=== PATIENT | female | born 1945 | race Caucasian/White ===

== ENCOUNTER 2017-05-21 16:19 | Outpatient (CLI) | payer MEDICARE, OTHER ==
[2016-08-03 02:10] VITALS: BP 174/62
[2017-05-21 16:57] LABS: EOSINOPHILS % 1.9 % (0.0-6.8); MEAN CORPUSCULAR HEMOGLOBIN 32.4 pg (28.0-34.0); MEAN CORPUSCULAR VOLUME 89.7 fl (80.0-100.0); MONOCYTES % 4.1 % (0.0-11.0); NEUTROPHILS # 4.2 # k/uL (1.4-7.7)
[2017-05-21 17:07] LABS: eGFR (African) > 60; eGFR (Non-African) > 60
== END 2017-05-21 16:20 ==
LOC: LAB 16:19
PROVIDERS: ATTEND Family Medicine
DX: I10 Essential (primary) hypertension (principal)
CPT/HCPCS: 36415; 80053; 85025

== ENCOUNTER 2017-07-26 21:36 | Emergency (ER) | payer MEDICARE, OTHER ==
--- NOTE | 2017-07-26 21:58 | ED Physician Documentation ---
General Adult - HPI Stated Complaint: Right arm pain Chief Complaint: General Adult Additional Information: In bed, began to roll to her left, and had aching pain in her right shoulder to he4r hand that lasted 2 minutes. Became sweaty and auseous while pain was present cause it hurt so much. Never had this particular pain before. All symptoms resolved in ER. - ROS CONST: no problems - PAST HX Past History: COPD Allergies/Adverse Reactions: Allergies Allergy/AdvReac Type Severity Reaction Status Date / Time Sulfa (Sulfonamide Allergy Verified 08/03/16 01:17 Antibiotics) [Sulfa(Sulfonamide Antibiotics)] Home Medications: Ambulatory Orders Medication Instructions Recorded predniSONE [Deltasone] 20 mg PO QD #2 tablet 08/03/16 - SOCIAL HX Smoking History: cigarettes - FAMILY HX Family History: No - VITAL SIGNS Vital Signs: Vital Signs Temp Pulse Resp BP Pulse Ox 98.4 F 70 18 181/62 93 07/26/17 21:50 07/26/17 21:50 07/26/17 21:50 07/26/17 21:50 07/26/17 21:50 - REVIEWED ASSESSMENTS Nursing Assessment Reviewed: Yes Vitals Reviewed: Yes Progress - Progress Progress: 3 views of the right shoulder Clinical history: Right shoulder pain Findings: No acute fracture dislocation is identified. Alignment is normal. Soft tissues are unremarkable. No calcifications identified. Impression: Negative Electronically signed on Jul 26, 2017 10:36:37 PM CDT by: Gera Mackey ED Results Lab/Radiology - Orders Orders: ED Orders Category Date Time Status SHOULDER 2 VIEWS OR MORE [RAD] Stat Exams 07/26/17 Ordered General Adult Physical Exam - PHYSICAL EXAM GENERAL APPEARANCE: no distress EENT: eye inspection normal, ENT inspection normal NECK: normal inspection, supple RESPIRATORY: breath sounds normal, rales, other (occasional cough) CVS: reg rate & rhythm, heart sounds normal, no murmur ABDOMEN: soft, normal bowel sounds BACK: normal inspection SKIN: warm/dry, normal color EXTREMITIES: non-tender, normal range of motion, no evidence of injury, other ( right radialpulse 2+) NEURO: CN's nml as tested, motor nml, sensation nml Discharge Clincal Impression: Shoulder pain Referrals: John Mixon MD [Primary Care Provider] - 2 Days Additional Instructions: You may have had a muscle spasm in your neck or shoulder. You can apply gentle heat to the area if it happens again. Condition: Good Disposition: 01 HOME, SELF-CARE Decision to Admit: NO Decision Time: 22:40
[2017-07-26 22:51] VITALS: BP 149/42
--- NOTE | 2017-07-27 06:50 | Diagnostic Imaging Report ---
NELLY ESTEVEZ [facility] [address] [facility] [address] [address] Report Submission Date: Jul 26, 2017 10:36:37 PM CDT Patient Study Name: OMERO MAC Date: Jul 26, 2017 9:55:14 PM CDT Modality Type: CR Gender: F Description: SHOULDER : 49 Institution: [facility] Physician: NELLY ESTEVEZ - PENNIE 3 views of the right shoulder Clinical history: Right shoulder pain Findings: No acute fracture dislocation is identified. Alignment is normal. Soft tissues are unremarkable. No calcifications identified. Impression: Negative Electronically signed on Jul 26, 2017 10:36:37 PM CDT by: Gera SMYTH
== END 2017-07-26 22:49 | disposition home or self-care (01) ==
LOC: ED 21:36
DX: M25.511 Pain in right shoulder (principal)
CPT/HCPCS: 73030; 99283

== ENCOUNTER 2017-07-28 17:21 | Outpatient (CLI) | payer MEDICARE, OTHER ==
--- NOTE | 2017-07-28 18:50 | Diagnostic Imaging Report ---
ALFIE PFEIFFER [facility] [address] [facility] [address] [place], [place]. [address] Report Submission Date: Jul 28, 2017 5:46:00 PM CDT Patient Study Name: OMERO MAC Date: Jul 28, 2017 5:21:59 PM CDT Modality Type: CR Gender: F Description: CHEST : 49 Institution: [facility] Physician: ALFIE PFEIFFER Examination: PA and lateral chest. History: Evaluate lung phipps. Comparison exam: None available Findings: PA lateral chest demonstrate a normal cardiac and mediastinal silhouette. Mild chronic/emphysematous parenchymal changes. No focal infiltrate. No effusion. No blunting of the costophrenic margins. Granuloma right lower lung. Flattening of the diaphragm on lateral view. Osseous structures are appropriate for age. Impression: Mild emphysematous parenchymal changes. No acute pulmonary process. Electronically signed on Jul 28, 2017 5:46:00 PM CDT by: Richardson SMYTH
== END 2017-07-28 17:22 ==
LOC: RAD 17:21
PROVIDERS: ATTEND Family Medicine
DX: J20.9 Acute bronchitis, unspecified (principal)
CPT/HCPCS: 71020

== ENCOUNTER 2017-09-06 15:17 | Outpatient (CLI) | payer MEDICARE, OTHER ==
--- NOTE | 2017-09-06 16:04 | Diagnostic Imaging Report ---
ALFIE PFEIFFER [facility] [address] [facility] [address] Report Submission Date: Sep 06, 2017 3:44:59 PM CDT Patient Study Name: OMERO MAC Date: Sep 06, 2017 3:30:08 PM CDT Modality Type: CR Gender: F Description: UPPER EXTREMITY : 49 Institution: [facility] Physician: ALFIE PFEIFFER Examination: Plain film humerus History: Discomfort Comparison exams: None provided Findings: 3 views of the humerus demonstrate normal cortical margins. No fracture. No dislocation. No joint effusion Impression: No acute osseous abnormality. Electronically signed on Sep 06, 2017 3:44:59 PM CDT by: Richardson SMYTH
--- NOTE | 2017-09-06 16:04 | Diagnostic Imaging Report ---
ALFIE PFEIFFER [facility] [place] [facility] [address] [facility].[address] [address] Report Submission Date: Sep 06, 2017 3:44:09 PM CDT Patient Study Name: OMERO MAC Date: Sep 06, 2017 3:24:56 PM CDT Modality Type: CR Gender: F Description: SHOULDER : 49 Institution: [facility] [place] [facility] Physician: ALFIE PFEIFFER Examination: Plain film shoulder History: Discomfort Comparison exams: None provided Findings: 2 views of the shoulder demonstrate normal cortical margins. No evidence for fracture or dislocation. No soft tissue abnormality Impression: No acute osseous process. Electronically signed on Sep 06, 2017 3:44:09 PM CDT by: Richardson SMYTH
== END 2017-09-06 15:19 ==
LOC: RAD 15:17
PROVIDERS: ATTEND Family Medicine
DX: M25.512 Pain in left shoulder (principal)
CPT/HCPCS: 73030; 73060

== ENCOUNTER 2017-10-18 14:11 | Outpatient (CLI) | payer MEDICARE, OTHER ==
--- NOTE | 2017-10-18 15:39 | Diagnostic Imaging Report ---
ALFIE PFEIFFER [facility] [address] [facility] [address] 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 No fracture. No dislocation. No joint effusion. No soft tissue irregularity. Impression: No acute osseous abnormality. Electronically signed on Oct 18, 2017 2:50:13 PM MATH AND SCIENCES DEPARTMENT CHAIR by: Richardson SMYTH
== END 2017-10-18 14:15 ==
LOC: RAD 14:11
PROVIDERS: ATTEND Family Medicine
DX: M25.561 Pain in right knee (principal)
CPT/HCPCS: 73562

== ENCOUNTER 2018-02-23 16:39 | Outpatient (CLI) | payer MEDICARE, OTHER ==
--- NOTE | 2018-02-23 18:43 | Diagnostic Imaging Report ---
ALFIE PFEIFFER [facility] [address] [facility] [address] [address] Report Submission Date: Feb 23, 2018 5:24:36 PM CDT Patient Study Name: OMERO MAC Date: Feb 23, 2018 4:47:53 PM CDT Modality Type: DX Gender: F Description: LOWER EXTREMITY : 49 Institution: [facility] Physician: ALFIE PFEIFFER Examination: Plain film knees History: BILAT AP KNEES STANDING, RT KNEE PAIN WORSENING X1 YEAR, NO KNOWN INJURY (Hx) Findings: Single AP standing view of the knees. Minimal tibial spine spurring. Mild medial joint space narrowing. No evidence for fracture. Impression: Mild degenerative changes. No fracture. Electronically signed on Feb 23, 2018 5:24:36 PM CDT by: Richardson SMYTH
--- NOTE | 2018-02-23 18:44 | Diagnostic Imaging Report ---
ALFIE PFEIFFER [facility] [address] [facility] [address] [address] Report Submission Date: Feb 23, 2018 5:28:40 PM CDT Patient Study Name: OMERO MCA Date: Feb 23, 2018 4:51:50 PM CDT Modality Type: DX Gender: F Description: LOWER EXTREMITY : 49 Institution: [facility] Physician: ALFIE PFEIFFER Examination: Plain film right knee History: RT KNEE, PAIN IN RT KNEE WORSENING X1 YEAR, NO KNOWN INJURY (Hx) / ITS.REASON right knee pain (DICOM Hx) Comparison exam: 18 October 2017 Findings: 3 views of the right knee demonstrates minimal tibial spine spurring. Mild medial joint space narrowing. No fracture. No dislocation. No joint effusion. No soft tissue irregularity. Impression: Mild degenerative changes. No acute appearing osseous abnormality Electronically signed on Feb 23, 2018 5:28:40 PM CDT by: Richardson SMYTH
--- NOTE | 2018-02-23 18:44 | Diagnostic Imaging Report ---
ALFIE PFEIFFER [facility] [address] [facility] [address] [place] [address]. [address] Report Submission Date: Feb 23, 2018 5:30:46 PM CDT Patient Study Name: OMERO MAC Date: Feb 23, 2018 4:53:25 PM CDT Modality Type: DX Gender: F Description: PELVIS : 49 Institution: [facility] Physician: ALFIE PFEIFFER Examination: Plain film pelvis/hips History: BILAT HIPS WITH PELVIS, RT HIP PAIN WORSENING X1 YEAR, NO KNOWN INJURY (Hx) Comparison exams: None provided Findings: 5 views of the pelvis and hips bilaterally demonstrate normal cortical margins. Minimal superior acetabular spurring. No fracture. No dislocation. No soft tissue abnormality. Lumbar and pubic symphysis degenerative changes. Impression: Degenerative changes. No acute appearing osseous abnormality. Electronically signed on Feb 23, 2018 5:30:46 PM CDT by: Richardson SMYTH
== END 2018-02-23 16:40 ==
LOC: RAD 16:39
PROVIDERS: ATTEND Family Medicine
DX: M25.561 Pain in right knee (principal); M25.551 Pain in right hip
CPT/HCPCS: 73521; 73562; 73565

== ENCOUNTER 2018-07-01 13:58 | Outpatient (CLI) | payer OTHER, MEDICARE | END 2018-07-01 14:27 | LOC: LAB 13:58 | PROVIDERS: ATTEND Family Medicine | DX: R30.0 Dysuria (principal) | CPT/HCPCS: 87086; 87186 ==

== ENCOUNTER 2018-11-17 10:08 | Outpatient (CLI) | payer MEDICARE, OTHER | END 2018-11-17 10:12 | LOC: LABRHC 10:08 | PROVIDERS: ATTEND Family Medicine | DX: N39.0 Urinary tract infection, site not specified (principal); B96.20 Unspecified Escherichia coli [E. coli] as the cause of diseases classified elsewhere; Z16.24 Resistance to multiple antibiotics | CPT/HCPCS: 87086; 87186 ==

== ENCOUNTER 2019-01-06 11:53 | Outpatient (CLI) | payer MEDICARE, OTHER ==
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
== END 2019-01-06 12:10 ==
LOC: RAD 11:53
PROVIDERS: ATTEND Family Medicine
DX: S22.060D Wedge compression fracture of T7-T8 vertebra, subsequent encounter for fracture with routine healing (principal)
CPT/HCPCS: 72072

== ENCOUNTER 2019-06-29 18:49 | Emergency (ER) | payer MEDICARE, OTHER ==
--- NOTE | 2019-06-29 19:37 | ED Physician Documentation ---
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 Pt was planning to have R hip surgery on Jun 12, but pre-op EKG was abnormal, and pcp wanted pt to have cardiac cath prior to hip surgery. Pt was lifting a lamp about 4 days ago and developed pain in her L shoulder when she lifted it overhead. She saw a chiropractor about her shoulder. In the last few days, shoulder pain has worsened until today, she developed intense shoulder pain with diaphoresis and vomiting. Pt denies chest pain per se. She has some sob, but this is chronic, as pt has COPD. She is a 1 ppd smoker.) - ROS CONST: no problems EYES/ENT: none CVS/RESP: shortness of breath (chronic) GI/: vomiting, nausea MS/SKIN/LYMPH: none - PAST HX Past History: COPD, other (R hip pain (planning surgery), anxiety, depression, HTN) - VITAL SIGNS Vital Signs: Vital Signs Temp Pulse Resp BP Pulse Ox 98.1 F 60 14 178/63 95 06/29/19 18:53 06/29/19 18:53 06/29/19 18:53 06/29/19 18:53 06/29/19 18:53 <Tenzin Lauren - Last Filed: 06/29/19 20:04> - SOCIAL HX Smoking History: non-smoker - FAMILY HX Family History: No - VITAL SIGNS Vital Signs: Vital Signs Temp Pulse Resp BP Pulse Ox 98.1 F 57 L 14 178/63 94 06/29/19 18:53 06/29/19 20:16 06/29/19 18:53 06/29/19 18:53 06/29/19 20:16 - REVIEWED ASSESSMENTS Nursing Assessment Reviewed: Yes Vitals Reviewed: Yes <NOELLE RAMAN - Last Filed: 06/29/19 21:21> - PAST HX Allergies/Adverse Reactions: Allergies Allergy/AdvReac Type Severity Reaction Status Date / Time Sulfa (Sulfonamide Allergy Verified 06/29/19 19:29 Antibiotics) [Sulfa(Sulfonamide Antibiotics)] Home Medications: Ambulatory Orders Medication Instructions Recorded Aspirin [Matt] 81 mg PO DAILY 07/26/17 Ketorolac Tromethamine [Toradol] 10 mg PO TID #9 tablet 06/29/19 Progress - Progress Progress: Care signed out to Noelle Tong at 1999. - EKG/XRAY/CT EKG: rhythm (Sinus bradycardia, HR=54; RSR V1, V2; LVH; EKG little changed from previous of 07-26-17.) <Tenzin Lauren - Last Filed: 06/29/19 20:04> - Progress Progress: Assumed care of patient - labs and EKG reviewed. Compared with EKG 07/26/2017 - no changes. Patient is schedule for cath with Dr Mckeon next week. ROM intact in left shoulder, no grimacing with ROM, tenderness over humeral head area. Will give 1 time dose of toradol. Patient states her PCP has instructed her not to use tylenol or ibuprofen related to her kidney function. Cr 1.16, GFR >60. Will dc with short course of NSAID and instructed patient to increase water intake while on NSAID. Patient will not move left arm. Requesting sling. Will apply in ER. Instructed patient to use as needed for pain x 2 days only. Encouraged active ROM. <NOELLE RAMAN - Last Filed: 06/29/19 21:21> ED Results Lab/Radiology - Lab Results Lab Results: Lab Results 06/29/19 06/29/19 06/29/19 19:46 19:46 19:19 WBC 6.50 K/ul K/ul (4.00-12.00) RBC 4.85 M/ul M/ul (3.90-5.20) Hgb 15.5 g/dL g/dL (11.5-16.0) Hct 45.4 % % (34.5-46.5) MCV 94.0 fl fl (80.0-100.0) MCH 32.0 pg pg (28.0-34.0) MCHC 34.1 g/dL g/dL (30.0-36.0) RDW 12.6 % % (11.3-14.3) Plt Count 119 K/mm3 L K/mm3 (130-400) Neut % (Auto) 66.0 % % (39.0-79.0) Lymph % (Auto) 27.2 % % (16.0-50.0) [place] % (Auto) 4.5 % % (0.0-11.0) Eos % (Auto) 1.8 % % (0.0-6.8) Baso % (Auto) 0.5 % % (0.0-1.5) Neut # (Auto) 4.3 # k/uL # k/uL (1.4-7.7) Lymph # (Auto) 1.8 # k/uL # k/uL (0.6-4.0) [place] # (Auto) 0.3 # k/uL # k/uL (0.0-0.9) Eos # (Auto) 0.1 # k/uL # k/uL (0.0-0.6) Baso # (Auto) 0.0 # k/uL # k/uL (0.0-0.5) Sodium 141 mmol/L mmol/L (137-145) Potassium 3.6 mmol/L mmol/L (3.5-5.1) Chloride 100 mmol/L mmol/L (98-107) Carbon Dioxide 29 mmol/L mmol/L (22-30) Anion Gap 15.6 BUN 24 mg/dL H mg/dL (7-17) Creatinine 1.16 mg/dL H mg/dL (0.52-1.04) Estimated Creat Clear 56 Est GFR ( Amer) > 60 (60 - ) Est GFR (Non-Af Amer) > 60 (60 - ) Glucose 113 mg/dL H mg/dL (74-106) Calcium 9.3 mg/dL mg/dL (8.4-10.2) Total Bilirubin 0.5 mg/dL mg/dL (0.2-1.3) AST 38 U/L U/L (15-46) ALT 17 U/L U/L (13-69) Alkaline Phosphatase 66 U/L U/L (38-126) Creatine Kinase 48 U/L U/L (30-135) CK-MB (CK-2) 1.1 ng/mL ng/mL (0.0-5.6) Troponin I < 0.012 ng/mL L ng/mL (0.012-0.034) Total Protein 7.7 g/dL g/dL (6.3-8.2) Albumin 4.6 g/dL g/dL (3.5-5.0) - Orders Orders: ED Orders Category Date Time Status Continuous EKG monitoring Q30M Care 06/29/19 19:46 Active Continuous Pulse Oximetry Q30M Care 06/29/19 19:[address] IV Lock 1T Care 06/29/19 19:46 Active CHEST 1VIEW [RAD] Stat Exams 06/29/19 Taken SHOULDER 2 VIEWS OR MORE [RAD] Stat Exams 06/29/19 Taken CBC/PLATELET/DIFF Routine Lab 06/29/19 19:46 Completed CKMB Stat Lab 06/29/19 19:19 Completed CMP Routine Lab 06/29/19 19:46 Completed CREATINE KINASE Routine Lab 06/29/19 19:46 Completed TROPONIN I Stat Lab 06/29/19 19:19 Completed Aspirin [Matt] Med 06/29/19 19:46 Discontinued 324 mg PO NOW ONE Ketorolac Tromethamine [Toradol] Med 06/29/19 20:39 Once 30 mg IVP NOW ONE Oxygen Daily Oxygen 06/29/19 20:00 Ordered EKG WITH COMPARISON Stat Ther 06/29/19 19:46 Ordered <NOELLE RAMAN - Last Filed: 06/29/19 21:21> General Adult Physical Exam - PHYSICAL EXAM GENERAL APPEARANCE: mild distress EENT: pharynx normal NECK: normal inspection, supple RESPIRATORY: no resp distress, rales (bibasilar) CVS: bradycardia ABDOMEN: soft, no organomegaly, normal bowel sounds BACK: normal inspection, no CVA tenderness SKIN: warm/dry, normal color EXTREMITIES: non-tender, normal range of motion, no evidence of injury, no edema NEURO: oriented X3, motor nml, sensation nml <Tenzin Lauren - Last Filed: 06/29/19 20:04> Discharge <Tenzin Lauren - Last Filed: 06/29/19 20:04> Decision to Admit: NO Decision Time: 20:45 <NOELLE RAMAN - Last Filed: 06/29/19 21:21> Clincal Impression: nausea, vomiting, diaphoresis Shoulder pain Qualifiers: Chronicity: unspecified Laterality: left Qualified Code(s): M25.512 - Pain in left shoulder Prescriptions: Ketorolac Tromethamine [Toradol] 10 mg PO TID #9 tablet Referrals: John Mixon MD [Primary Care Provider] - Additional Instructions: Ice Rest Elevation If you are continuing to have significant pain on day 3-4; see your PCP for re- evaluation and additional xrays. You may want to try massage, over the counter lidocaine patches, biofreeze, vivian jain or aspercream . 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 Be sure you are drinking at least 64 oz of water while on the ketoralac. Do not take aleve or ibuprofen while you are on the ketoralac. Condition: Stable Disposition: 01 HOME, SELF-CARE
[2019-06-29] MEDS: ASPIRIN 81 MG CHEW TAB PO ONE (19:59)
[2019-06-29 20:00] LABS: BASOPHILS % 0.5 % (0.0-1.5); NEUTROPHILS # 4.3 # k/uL (1.4-7.7)
[2019-06-29 20:01] LABS: eGFR (Non-African) > 60
[2019-06-29] MEDS: KETOROLAC TROMETHAMINE 30 MG/1ML VIAL IVP ONE (20:47)
--- NOTE | 2019-06-29 20:47 | Diagnostic Imaging Report ---
CAROLYN CAO [facility] [address] [facility] [address] [address] Report Submission Date: Jun 29, 2019 8:20:13 PM CDT Patient Study Name: OMERO MAC Date: Jun 29, 2019 7:45:13 PM CDT Modality Type: DX Gender: F Description: CHEST 1VIEW : 49 Institution: [facility] Physician: CAROLYN CAO AP chest Clinical history: Shoulder pain. Findings: Examination of the chest in single AP view demonstrates the lungs to be clear. Cardiovascular and mediastinal silhouettes are within normal limits. Bony thorax is intact. Impression: 1. No active disease. Electronically signed on Jun 29, 2019 8:20:13 PM CDT by: Bharathi SMYTH
--- NOTE | 2019-06-29 20:50 | Diagnostic Imaging Report ---
CAROLYN CAO [facility] [address] [facility] [address] [place] [address]. [address] Report Submission Date: Jun 29, 2019 8:21:06 PM CDT Patient Study Name: OMERO MAC Date: Jun 29, 2019 7:50:39 PM CDT Modality Type: DX Gender: F Description: SHOULDER 2 VIEWS OR MORE : 49 Institution: [facility] Physician: CAROLYN CAO Three views of the left shoulder Clinical history: Pain. Findings: Examination left shoulder in multiple views fails to demonstrate evidence of fracture. There is no lytic or blastic lesion. Mild degenerative changes are seen in the acromioclavicular joint. Impression: 1. Mild degenerative changes. 2. No fracture. Electronically signed on Jun 29, 2019 8:21:06 PM CDT by: Bharathi SMYTH
[2019-06-29 21:02] VITALS: BP 184/73
== END 2019-06-29 20:58 | disposition home or self-care (01) ==
LOC: ED 18:49
DX: M25.512 Pain in left shoulder (principal)
CPT/HCPCS: 71045; 73030; 80053; 82550; 82553; 84484; 85025; 96374; 99284; J1885; S1016

== ENCOUNTER 2019-10-18 10:26 | Outpatient (CLI) | payer MEDICARE, OTHER ==
[2019-10-18 11:44] LABS: HDL 49 mg/dL (>40); eGFR (Non-African) 44
== END 2019-10-18 10:31 ==
LOC: LAB 10:26
PROVIDERS: ATTEND Family Medicine
DX: I10 Essential (primary) hypertension (principal); E78.1 Pure hyperglyceridemia
CPT/HCPCS: 36415; 80053; 80061